=== PATIENT | female | born 1940 | race Caucasian/White ===

== ENCOUNTER → 2016-12-11 | Outpatient (CLI) | payer MEDICARE, MEDICAID ==
[~2016-12-11] MED LIST: ADVAIR DISKUS1 DS2 IH; ASPIRIN E.C. 8181 MG PO; DIABETA 5MG5 MG/TAB PO; INCRUSE EL62.5 MCG/A IH; LASIX20 M1 PO; LISINOPRIL20 MG PO; LOPRESSOR 225 MG/TAB PO; MULTIPLE VITAM1 EACH PO; NATURAL IRON65 MG PO; NATURE'S BLEND400 IU PO; NORVASC 10MG10 MG PO; PHARMASSURE FO0.4 MG PO; TYLENOL 325MG325 MG PO; ZOCOR 80MG80 MG PO
== END ==
LOC: LAB 16:35
DX: E11.9 Type 2 diabetes mellitus without complications (principal); R20.2 Paresthesia of skin; I10 Essential (primary) hypertension; E78.2 Mixed hyperlipidemia; D64.9 Anemia, unspecified; N30.00 Acute cystitis without hematuria

== ENCOUNTER → 2016-12-14 | Outpatient (CLI) | payer MEDICARE, MEDICAID | LOC: RAD 08:11 | DX: I65.23 Occlusion and stenosis of bilateral carotid arteries (principal) ==

== ENCOUNTER → 2016-12-20 | Outpatient (CLI) | payer MEDICARE, MEDICAID | LOC: LAB 10:33 | DX: N30.00 Acute cystitis without hematuria (principal); E11.9 Type 2 diabetes mellitus without complications ==

== ENCOUNTER → 2016-12-28 | Outpatient (CLI) | payer MEDICARE, MEDICAID | LOC: LAB 10:25 | DX: E11.9 Type 2 diabetes mellitus without complications (principal); I10 Essential (primary) hypertension ==

== ENCOUNTER → 2017-01-22 | Outpatient (CLI) | payer MEDICARE, MEDICAID | LOC: LAB 09:54 | DX: E11.9 Type 2 diabetes mellitus without complications (principal); I10 Essential (primary) hypertension ==

== ENCOUNTER 2017-03-08 20:11 | Emergency (ER) | payer MEDICARE, MEDICAID ==
[~2017-03-08] VITALS: Ht 162.6 cm; Wt 88.2 kg
[2017-03-08] MEDS ORDERED: DIABETA 5MG5 MG/TAB PO (20:26)
[2017-03-08] MEDS ORDERED: NORVASC 10MG10 MG PO (20:26)
[2017-03-08] MEDS ORDERED: LASIX20 M1 PO (20:26)
[2017-03-08] MEDS ORDERED: LOPRESSOR 225 MG/TAB PO (20:27)
[2017-03-08] MEDS ORDERED: LISINOPRIL20 MG PO (20:27)
[2017-03-08] MEDS ORDERED: ASPIRIN E.C. 8181 MG PO (20:27)
[2017-03-08] MEDS ORDERED: ZOCOR 80MG80 MG PO (20:27)
[2017-03-08] MEDS ORDERED: NATURAL IRON65 MG PO (20:28)
[2017-03-08] MEDS ORDERED: MULTIPLE VITAM1 EACH PO (20:28)
[2017-03-08] MEDS ORDERED: PHARMASSURE FO0.4 MG PO (20:28)
[2017-03-08] MEDS ORDERED: NATURE'S BLEND400 IU PO (20:29)
[2017-03-08] MEDS ORDERED: TYLENOL 325MG325 MG PO (20:30)
[2017-03-08] MEDS ORDERED: INCRUSE EL62.5 MCG/A IH (20:30)
[2017-03-08] MEDS ORDERED: ADVAIR DISKUS1 DS2 IH (20:31)
[2017-03-08 22:22] VITALS: BP 115/37
== END 2017-03-08 22:22 | disposition other institution (70) ==
LOC: ED 20:11
DX: J18.9 Pneumonia, unspecified organism (principal); J44.9 Chronic obstructive pulmonary disease, unspecified; E11.9 Type 2 diabetes mellitus without complications; I10 Essential (primary) hypertension; R06.02 Shortness of breath; R09.02 Hypoxemia; Z79.84 Long term (current) use of oral hypoglycemic drugs

== ENCOUNTER 2017-03-08 22:22 | Inpatient (IN) | payer MEDICARE, MEDICAID ==
[~2017-03-08] VITALS: Ht 165.1 cm; Wt 88.1 kg
[2017-03-08 23:13] VITALS: BP 127/47
[2017-03-08 23:50] VITALS: BP 127/47
[2017-03-09 03:24] VITALS: BP 103/46
[2017-03-09 06:23] VITALS: BP 109/53
[2017-03-09 10:19] VITALS: BP 93/47
== END 2017-03-09 11:13 | disposition short-term general hospital (02) | DRG 291 ==
LOC: MED/SURG 22:22
DX: I11.0 Hypertensive heart disease with heart failure (principal); J44.1 Chronic obstructive pulmonary disease with (acute) exacerbation; I50.9 Heart failure, unspecified; Z66 Do not resuscitate; I95.9 Hypotension, unspecified; Z87.891 Personal history of nicotine dependence; J44.0 Chronic obstructive pulmonary disease with (acute) lower respiratory infection; J18.9 Pneumonia, unspecified organism
CPT/HCPCS: J1650; J1815; J1940; J1956; J2543; J2930; J7030